=== PATIENT | male | born 1970 | race Caucasian/White ===

== ENCOUNTER 2022-01-15 18:29 | Emergency (ER) | payer OTHER, SELFPAY ==
--- NOTE | ~2022-01-15 | XR_ITS ---
EXAMINATION: XR chest 2V Exam Date/Time: 01/15/2022 19:00 CDT CLINICAL HISTORY: cough, smoker, fever Comparison: None available. RESULT: Lines, tubes, and devices: None. Lungs and pleura: Ill-defined hazy opacity in the right lower lung. Cardiomediastinal silhouette: Stable cardiomediastinal silhouette. Other: No acute osseous or upper abdominal finding. IMPRESSION: Right lower lung opacity may reflect infection, including atypical/viral. Reviewed, dictated and finalized at location K.
[2022-01-15 18:37] VITALS: BP 150/82; PULSE 88; RESP 20; TEMP 37.7; O2SAT 99
--- NOTE | 2022-01-15 19:47 | ED.URI ---
HPI - URI/Sore Throat General Chief Complaint: Upper Respiratory Infection Stated Complaint: Fever Time Seen by Provider: 01/15/22 19:35 Source: patient, RN notes reviewed and old records reviewed Mode of arrival: ambulatory Limitations: no limitations History of Present Illness HPI Narrative: 51-year-old male who presents to [facility] with 6 days duration of fever up to 102F, sinus headache, sinus congestion,some postnasal drainage and cough. Patient states on 13 January he had a tele-med doc visit and was placed on antiviral for possible influenza He is expectorating greenish phlegm with cough and has sinus drainage of greenish mucous also. Patient continues to run fevers and states that he is not feeling any better. 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 MD elicited complaint: cough and rhinorrhea Onset (ago): day(s) (6) Description of mucous: green Treatments prior to arrival: acetaminophen, ibuprofen and other (antiviral) Related Data Home Medications Medication Instructions Recorded Confirmed allopurinol 300 mg tablet 300 mg PO BID 06/11/20 01/15/22 celecoxib 100 mg capsule 100 mg PO BID 06/11/20 01/15/22 fenofibrate micronized 200 mg 200 mg PO DAILY 06/11/20 01/15/22 capsule Allergies Allergy/AdvReac Type Severity Reaction Status Date / Time No Known Allergies Allergy Verified 01/15/22 18:46 Review of Systems Review of Systems: CONSTITUTIONAL: Positive for fever, chills, or sweats. EYES: Denies visual changes, redness, or discharge. ENT: Positive for rhinorrhea, congestion,no sore throat, or otalgia. CARDIOVASCULAR: Denies chest pain, palpitations, or edema. RESPIRATORY: Positive for cough denies accute dyspnea. GASTROINTESTINAL: Denies abdominal pain, nausea, vomiting, or diarrhea. GENITOURINARY: Denies dysuria or hematuria. SKIN: Denies rash or itching. MUSCULOSKELETAL: Denies back pain, joint pain, or myalgia. NEUROLOGIC: Positive for headache, no numbness, or weakness. PSYCHIATRIC: Denies anxiety or depression. All systems reviewed & are unremarkable except as noted in HPI and below PMFSH Past Medical History Medical History Arthralgia Bilateral acute serous otitis media GERD (gastroesophageal reflux disease) Gout Hypertriglyceridemia Osteoarthritis Social History Social History (Updated 01/15/22 @ 19:56 by Sara Carodna NP) Smoking packs per day: 1 Smoking cigarettes per day: 20.0 Years smoked: 25 Smoking pack-years: 25.00 Smoking status: Current every day smoker Tobacco type: cigarettes Comments At time of signature, agree with nursing past medical, surgical, social and family history. There is no relevant family history pertinent to the presenting complaint Exam Narrative: GENERAL: Well-appearing, well-nourished, and in no acute distress. HEAD: Normocephalic, atraumatic. EYES: PERRLA and EOMI. ENT: Nares red with green yellow sinus drainage, no epistaxis. Mucous membranes moist.TM's normal with good light reflex, throat with some redness no lesions or exudates tonsil not enlarged. NECK: Supple. no lymphadenopathy CHEST: Coarse decreased breath sounds on auscultation. No respiratory distress. no tachypnea, cough which is productive,SAO2 99% on room air HEART: Regular rate and rhythm. No murmur heard. Normal peripheral pulses. ABDOMEN: Soft, nontender, nondistended, normal active bowel sounds. EXTREMITIES: Normal range of motion. No edema. SKIN: Warm, dry, no rash. NEURO: No focal deficits. Alert and oriented x3. Course Course Level of Care: Express Care Visit Vital Signs Vital signs: Vital Signs Temperature 37.7 C H 01/15/22 18:37 Pulse Rate 88 01/15/22 18:37 Respiratory Rate 20 01/15/22 18:37 Blood Pressure 150/82 H 01/15/22 18:37 Pulse Oximetry 99 01/15/22 18:37 Temperature 37.7 C H 01/15/22 18:37 Pulse Rate 88 01/15/22 18:37 Respiratory Rate
== END 2022-01-15 20:08 | disposition home or self-care (01) ==
PROVIDERS: Emergency Provider Registered Nurse; PCP Family Medicine
DX: J18.9 Pneumonia, unspecified organism (principal); F17.210 Nicotine dependence, cigarettes, uncomplicated
CPT/HCPCS: 71046; 99213; G0463

== ENCOUNTER 2022-08-03 14:59 | Emergency (ER) | payer OTHER, SELFPAY ==
--- NOTE | ~2022-08-03 | XR_ITS ---
EXAMINATION: XR chest 2V Exam Date/Time: 08/03/2022 16:[address] TECHNICIAN HISTORY: COUGH SINCE 07/24/22. Comparison: 01/15/2022. RESULT: Lines, tubes, and devices: None. Lungs and pleura: Ill-defined right lower lung opacity, more reticular in appearance with the sugges tion of mild diffuse reticulonodular opacities and cuffing. Cardiomediastinal silhouette: Stable. Other: No acute osseous or upper abdominal finding. IMPRESSION: Pulmonary opacities may represent bronchiolitis, as can be seen with atypical infection, asthma, aspi ration, and small airways disease. Reviewed, dictated and finalized at location K. WAY ENGINEERING TECHNICIAN IMPRESSION: Pulmonary opacities may represent bronchiolitis, as can be seen with atypical i nfection, asthma, aspiration, and small airways disease.
[2022-08-03 15:38] VITALS: BP 135/84; PULSE 84; RESP 24; TEMP 36.9; O2SAT 97
--- NOTE | 2022-08-03 18:00 | ED.URI ---
HPI - URI/Sore Throat General Chief Complaint: Upper Respiratory Infection Stated Complaint: Shortness of Breath/Fever/Cough Time Seen by Provider: 08/03/22 18:00 Source: patient, RN notes reviewed and old records reviewed Mode of arrival: ambulatory Limitations: no limitations History of Present Illness HPI Narrative: 51 year old male presents to [facility] care with complaints of cough, fever up to 102F for the past 4 days, some shortness of breath and noted wheezes. Patient reports concern for pneumonia and flu. He states that he did a teleconference visit did not test for flu. He states that he tried to go back to work today but couldn't complete his shift. Patient reports that he started Tamiflu on Thursday.Patient has also taken Ibuprofen and Tylenol for his body aches which he rates as 6/10. MD elicited complaint: cough and sore throat Pertinent past history: other (tobacco use) Onset (ago): day(s) (4) Pain scale (0-10): 6 Treatments prior to arrival: acetaminophen, ibuprofen and other (tamiflu) Related Data Home Medications Medication Instructions Recorded Confirmed allopurinol 300 mg tablet 300 mg PO BID 06/11/20 01/15/22 celecoxib 100 mg capsule 100 mg PO BID 06/11/20 01/15/22 fenofibrate micronized 200 mg 200 mg PO DAILY 06/11/20 01/15/22 capsule oseltamivir 75 mg capsule mg 08/03/22 Allergies Allergy/AdvReac Type Severity Reaction Status Date / Time No Known Allergies Allergy Verified 01/15/22 18:46 Review of Systems Review of Systems: CONSTITUTIONAL: reports malaise, chills, sweats, or fever. EYES: Denies visual changes, redness, or discharge. ENT: Reports rhinorrhea, congestion, sinus pain, no otalgia and positive for sore throat. CARDIOVASCULAR: Denies chest pain, palpitations, or edema. RESPIRATORY: Reports cough.? Reports some dyspnea with cough and exertion GASTROINTESTINAL: Denies abdominal pain, nausea, vomiting, diarrhea SKIN: Denies rash or itching. MUSCULOSKELETAL:Reports myalgia. NEUROLOGIC: Denies headache. All systems reviewed & are unremarkable except as noted in HPI and below PMFSH Past Medical History Medical History Arthralgia Bilateral acute serous otitis media GERD (gastroesophageal reflux disease) Gout Hypertriglyceridemia Osteoarthritis Social History Social History (Updated 01/15/22 @ 19:56 by Sara Cardona NP) Smoking packs per day: 1 Smoking cigarettes per day: 20.0 Years smoked: 25 Smoking pack-years: 25.00 Smoking status: Current every day smoker Tobacco type: cigarettes Comments At time of signature, agree with nursing past medical, surgical, social and family history. There is no relevant family history pertinent to the presenting complaint Exam Narrative: GENERAL: Well-appearing, well-nourished, and in no acute distress. HEAD: Normocephalic EYES: PERRLA, conjunctivae clear ENT: Nares clear, turbinates edematous and erythematous, clear discharge. Mucous membranes moist. TM pearly gomez with dull light reflex bilaterally; no tragal tenderness. Oropharynx erythematous without lesions. Tonsils not enlarged and without exudate, no drooling, no hoarseness, no trismus, uvula midline. NECK: Supple. No lymphadenopathy CHEST: Scattered wheezing on auscultation, breath sounds equal. Positive for wheezing,no rhonchi, rales, or stridor. No respiratory distress, speaks in full sentences.cough, SAO2 97% on room air HEART: Regular rate and rhythm. No murmur heard. SKIN: Warm, dry, no rash. NEURO: Alert and oriented x3. PSYCH: Normal mood and affect Course Course Emergency Course: Patient is aware of diagnosis, understands and agrees to treatment plan.? Anticipatory guidance given.? Patient agrees to follow-up as directed and is aware of reasons to seek care at the emergency department. Portions of this record may have been created with voice recognition software Level of Care
== END 2022-08-03 18:38 | disposition home or self-care (01) ==
PROVIDERS: Emergency Provider Registered Nurse
DX: J20.9 Acute bronchitis, unspecified (principal); J06.9 Acute upper respiratory infection, unspecified; K21.9 Gastro-esophageal reflux disease without esophagitis; F17.210 Nicotine dependence, cigarettes, uncomplicated
CPT/HCPCS: 71046; 87804; 99213; G0463

== ENCOUNTER 2022-12-17 08:06 | Emergency (ER) | payer OTHER, SELFPAY ==
--- NOTE | ~2022-12-17 | XR_ITS ---
EXAMINATION: XR wrist RT min 3V DATE: 12/17/2022 08:21 INDICATION: Right wrist injury and pain. TECHNIQUE: 4 views of right wrist were obtained. COMPARISON: None. FINDINGS: Bone alignment is normal. No fracture. There is severe osteoarthritis of distal radioulnar joint. There is mild osteoarthritis of triscaphe joint and first carpometacarpal joint. There are loo se bodies in the radiocarpal compartment. IMPRESSION: 1. Polyarticular osteoarthritis. 2. Loose bodies in the radiocarpal compartment. Reviewed, dictated and finalized at location A.
--- NOTE | 2022-12-17 08:07 | ED.UPPEXIN ---
HPI - Extremity Injury (Upper) General Chief Complaint: Extremity Injury, Upper Stated Complaint: right wrist injury Time Seen by Provider: 12/17/22 08:07 Source: patient, RN notes reviewed and old records reviewed Mode of arrival: ambulatory Limitations: no limitations History of Present Illness HPI narrative: 51-year-old male presents to the [facility] with right wrist pain. Patient states that he tripped and fell with an outstretched hand on Thursday, 2 days ago. Has taken Tylenol but pain is not getting any better. Tenderness to the dorsal mid wrist. No snuffbox tenderness, nose bruising or swelling noted. Capillary refill under 2 seconds. Positive radial pulse. Full range of motion and strong boat hop noted MD complaint: injury to: right and wrist Onset (ago): day(s) (2) Other Extremity Injury: Right: wrist Place: home Relieving factors: none Treatments prior to arrival: other (Acetaminophen) Related Data Home Medications Medication Instructions Recorded Confirmed allopurinol 300 mg tablet 300 mg PO BID 06/11/20 01/15/22 celecoxib 100 mg capsule 100 mg PO BID 06/11/20 01/15/22 fenofibrate micronized 200 mg 200 mg PO DAILY 06/11/20 01/15/22 capsule Allergies Allergy/AdvReac Type Severity Reaction Status Date / Time No Known Allergies Allergy Verified 12/17/22 08:14 Review of Systems Review of Systems: All systems reviewed & are unremarkable except as noted in HPI and below Constitutional: Constitutional: Reports no additional constitutional complaints Eyes: Eyes: Reports no additional eye complaints ENT: Reports system reviewed and no additional complaints, except as documented Cardiovascular: Cardiovascular: Reports no additional cardiovascular complaints, Denies chest pain and Denies dyspnea Respiratory: Respiratory: Reports no additional respiratory complaints, Denies chest congestion, Denies cough and Denies dyspnea Gastrointestinal: Gastrointestinal: Reports no additional gastrointestinal complaints, Denies abdominal pain, Denies nausea and Denies vomiting Musculoskeletal: Musculoskeletal: Reports as per HPI and Reports arthralgias (right wrist dorsal) Integumentary/Breasts: Skin/Breast: Reports system reviewed and no additional complaints, except as docu Neurologic: Reports system reviewed and no additional complaints, except as documented Psychiatric: Psychiatric: Reports no additional psychiatric complaints Allergic/Immunologic: Allergic/Immunologic: Reports no additional allergic/immunologic complaints PMFSH Past Medical History Medical History Arthralgia Bilateral acute serous otitis media GERD (gastroesophageal reflux disease) Gout Hypertriglyceridemia Osteoarthritis Social History Social History Smoking packs per day: 1 Smoking cigarettes per day: 20.0 Years smoked: 25 Smoking pack-years: 25.00 Smoking status: Current every day smoker Tobacco type: cigarettes Comments At the time of my signature, I reviewed and agree with the nursing past medical, surgical, social, and family history. There is no relevant family history pertinent to the patient complaint. Exam Const: General: cooperative, healthy appearing, comfortable, no acute distress, well developed, alert and well nourished Nutritional Appearance: well nourished Orientation/consciousness: patient oriented x3 Limitations: no limitations HENMT: Head: normal to inspection Ears: hearing grossly normal bilaterally and external ears normal Face/Nose/Sinus: Normal external nose present, Normal nares present, Normal nasal mucous membranes and turbinates present and normal facial exam Face and sinus: normal facial exam Mouth: Yes Normal oral and palatal mucosa present, Yes lip normal and Yes moist mucous membranes Eyes: General: appearance normal, both eyes and all related structures Alignment and Position:
[2022-12-17 08:11] VITALS: BP 138/90; PULSE 84; RESP 16; TEMP 36.6; O2SAT 97
[2022-12-17 08:15] VITALS: BP 138/90; PULSE 84; RESP 16; TEMP 36.6; O2SAT 97
--- NOTE | 2022-12-17 08:23 | PC.NURSE ---
pt declined ice for comfort
== END 2022-12-17 08:39 | disposition home or self-care (01) ==
PROVIDERS: Emergency Provider Nurse Practitioner; PCP Physician Assistant
DX: M25.531 Pain in right wrist (principal); M19.031 Primary osteoarthritis, right wrist; F17.210 Nicotine dependence, cigarettes, uncomplicated; K21.9 Gastro-esophageal reflux disease without esophagitis; M10.9 Gout, unspecified; E78.1 Pure hyperglyceridemia
CPT/HCPCS: 73110; 99213; G0463

== ENCOUNTER 2023-07-19 12:23 | Emergency (ER) | payer OTHER, SELFPAY ==
[2023-07-19 12:56] VITALS: BP 126/72; PULSE 91; RESP 20; TEMP 37.4; O2SAT 96
--- NOTE | 2023-07-19 14:31 | ED.GENADULT ---
HPI - General Adult General Chief complaint: Upper Respiratory Infection Stated complaint: Needs COVID test for work Source: patient Mode of arrival: ambulatory Limitations: no limitations History of Present Illness HPI narrative: Patient presents requesting a COVID test. He indicates 36 hours ago he developed some sick symptoms including sinus congestion, cough, mild SOB, fatigue, body aches and subjective fever. He denies chills, nausea, vomiting and diarrhea. He took a home COVID test which was positive. He states his employer is needing documentation of positive COVID test by a medical professional. Related Data Home Medications Medication Instructions Recorded Confirmed allopurinol 300 mg tablet 300 mg PO BID 06/11/20 12/17/22 celecoxib 100 mg capsule 100 mg PO BID 06/11/20 12/17/22 fenofibrate micronized 200 mg 200 mg PO DAILY 06/11/20 12/17/22 capsule Allergies Allergy/AdvReac Type Severity Reaction Status Date / Time No Known Allergies Allergy Verified 12/17/22 08:14 Review of Systems Review of Systems: CONSTITUTIONAL: Reports sweats, fatigue and subjective fever. Denies chills EYES: Denies visual changes, redness, or discharge. ENT: Reports sinus congestion and rhinorrhea. CARDIOVASCULAR: Denies chest pain, palpitations, or edema. RESPIRATORY: Reports cough and mild shortness of breath GASTROINTESTINAL: Denies abdominal pain, nausea, vomiting, or diarrhea. GENITOURINARY: Denies dysuria or hematuria. SKIN: Denies rash or itching. MUSCULOSKELETAL: Reports generalized body aches. NEUROLOGIC: Denies headache, numbness, dizziness, or weakness. PSYCHIATRIC: Denies anxiety or depression. [facility] Past Medical History Medical History (Updated 07/19/23 @ 14:36 by SAGAR Dixon, LISE) Arthralgia Bilateral acute serous otitis media GERD (gastroesophageal reflux disease) Gout Hypertriglyceridemia Osteoarthritis Surgical History Surgical History No pertinent past surgical history Family History Family History Mother Family history non-contributory Social History Social History Smoking packs per day: 1 Smoking cigarettes per day: 20.0 Years smoked: 25 Smoking pack-years: 25.00 Smoking status: Current every day smoker Tobacco type: cigarettes Living arrangements: with family Gender identity (if verbalized by the patient): Male Sexual Orientation (if Verbalized by the Patient): Straight or Heterosexual Spiritual care concerns: No Exam Narrative: GENERAL: Appears acutely ill but nontoxic. HEAD: Normocephalic, atraumatic. EYES: PERRLA and EOMI. ENT: Nares clear, no rhinorrhea or epistaxis. Mucous membranes moist. Oropharynx without tonsillar hypertrophy exudate or other lesions. Bilateral TMs pearly gomez nonbulging NECK: Supple. No adenopathy or masses. No carotid bruits or JVD CHEST: Cough present on exam. Clear to auscultation. No respiratory distress. No wheezes rales or rhonchi HEART: Regular rate and rhythm. No murmur heard. Normal peripheral pulses. ABDOMEN: Soft, nontender, nondistended, normal active bowel sounds. EXTREMITIES: Normal range of motion. No edema. SKIN: Warm, dry, no rash. NEURO: No focal deficits. Alert and oriented x3. PSYCH: Normal mood and affect. Course Course Emergency Course: This is a 52-year-old male who presented for evaluation of sick symptoms. He took a home COVID test which was positive and needed documentation from a medical provider indicating he had a positive test. Although his test here is negative, his reported symptoms and physical exam lead me to believe it is quite possible that he has COVID. Increase hydration. [id number] agents for symptom management. Recommend smoking cessation. Follow up with primary provider. Go to th
== END 2023-07-19 14:34 | disposition home or self-care (01) ==
PROVIDERS: Emergency Provider Nurse Practitioner; PCP Family Medicine
DX: B34.9 Viral infection, unspecified (principal); Z20.822 Contact with and (suspected) exposure to COVID-19; F17.210 Nicotine dependence, cigarettes, uncomplicated; K21.9 Gastro-esophageal reflux disease without esophagitis; M10.9 Gout, unspecified; E78.1 Pure hyperglyceridemia; M19.90 Unspecified osteoarthritis, unspecified site
CPT/HCPCS: 87426; 99213; C9803; G0463